=== PATIENT | male | born 1975 | race Two or more races ===

== ENCOUNTER 2018-03-02 20:41 | Emergency (ER) | payer SELFPAY ==
[~2018-03-02] VITALS: Ht 165.1 cm; Wt 59.0 kg
[2018-03-02 20:53] VITALS: BP 138/79
[2018-03-02] MEDS ORDERED: TRAMADOL HCL 50 MG TABLET PO ONE (21:30)
== END 2018-03-02 20:55 | disposition left against medical advice (07) ==
LOC: ER 20:41
DX: M79.604 Pain in right leg (principal); Z53.21 Procedure and treatment not carried out due to patient leaving prior to being seen by health care provider
CPT/HCPCS: A4606; Z7610